=== PATIENT | male | born 1955 | race Asian ===

== ENCOUNTER 2024-03-05 08:22 | Inpatient (IN) | payer OTHER ==
[2024-03-05 08:43] LABS: #Basophils 0.06 10x3/uL (0.0-0.2); %Basophils 0.7 % (0.0-1.0); %Lymphocytes 24.4 % (21.0-51.0); %Monocytes 6.8 % (0.0-10.0); %Neutrophils 59.9 % (42.0-75.0); Hematocrit 44.2 % (42.0-52.0); Hemoglobin 14.5 g/dL (14.0-18.0); Mean Corpuscular HGB CONC 32.8 g/dL (32.0-36.0); Mean Corpuscular Hemoglobin 28.2 pg (27.0-31.0); Mean Platelet Volume 9.8 fL (7.4-10.4); Platelet Count 281 10x3/uL (130-400); RBC Distribution Width 12.7 % (11.5-14.5); Red Blood Cell (RBC) Count 5.14 mill/uL (4.70-6.10)
[2024-03-05 08:57] LABS: Prothrombin Time 13.1 sec (12.0-14.7)
[2024-03-05 08:58] LABS: PTT 28.7 sec (22.9-36.1)
[2024-03-05 09:02] LABS: ALT (SGPT) 18 U/L (8-55); AST (SGOT) 20 U/L (5-34); Alkaline Phosphatase 69 U/L (40-110); Anion Gap 12 mmol/L (10-20); BUN (Urea Nitrogen) 14 mg/dL (8.4-25.7); Calc. Creatinine Clearance 0 mL/min (70-130); Calcium 9.5 mg/dL (7.8-10.44); Carbon Dioxide 25 mmol/L (23-31); Chloride 104 mmol/L (98-107); Estimated GFR 76; Globulin 3.4 g/dL (2.4-3.5); Glucose 178 mg/dL (80-115); Potassium 4.2 mmol/L (3.5-5.1); Protein, Total 7.4 g/dL (5.8-8.1); Sodium 137 mmol/L (136-145)
[2024-03-05 09:04] LABS: Troponin I Less than 0.010 ng/mL (< 0.028)
[2024-03-05] MEDS ORDERED: Aspirin Chewable 81 MG TAB ONE (09:17)
[2024-03-05] MEDS ORDERED: Acetaminophen 325 MG TAB PO PRN (10:02)
[2024-03-05] MEDS ORDERED: Ondansetron PF 4 MG/2 ML Vial IVP PRN (10:37)
[2024-03-05] MEDS ORDERED: Ondansetron ODT 4 MG TAB PO PRN (10:37)
[2024-03-05 11:14] VITALS: BMI 25.5
[2024-03-05 11:32] LABS: Troponin I 0.019 ng/mL (< 0.028)
[2024-03-05] MEDS ORDERED: Dextrose 50% Abboject 50 ML SYRINGE SLOW IVP PRN (14:09)
[2024-03-05] MEDS ORDERED: HumaLOG 300 UNITS/3 ML VIAL SC PRN ×2 (14:09)
[2024-03-05] MEDS ORDERED: Glucagon 1 MG/ML KIT IM PRN (14:09)
[2024-03-05] MEDS ORDERED: Dextrose 5% in Water 1,000 ML IV PRN (14:09)
[2024-03-05 17:07] LABS: Troponin I 0.021 ng/mL (< 0.028)
[2024-03-05] MEDS: Atorvastatin Calcium 40 MG TAB PO SCH (20:04)
[2024-03-06 04:30] LABS: #Basophils 0.05 10x3/uL (0.0-0.2); %Basophils 0.6 % (0.0-1.0); %Eosinophils 8.1 % (0.0-10.0); %Lymphocytes 13.8 % (21.0-51.0); %Monocytes 8.2 % (0.0-10.0); %Neutrophils 69.2 % (42.0-75.0); Hematocrit 41.3 % (42.0-52.0); Hemoglobin 13.6 g/dL (14.0-18.0); Mean Corpuscular HGB CONC 32.9 g/dL (32.0-36.0); Mean Corpuscular Hemoglobin 27.3 pg (27.0-31.0); Mean Corpuscular Volume 82.8 fL (78.0-98.0); Mean Platelet Volume 9.7 fL (7.4-10.4); Platelet Count 259 10x3/uL (130-400); RBC Distribution Width 12.5 % (11.5-14.5); Red Blood Cell (RBC) Count 4.99 mill/uL (4.70-6.10)
[2024-03-06 05:01] LABS: Anion Gap 14 mmol/L (10-20); BUN (Urea Nitrogen) 13 mg/dL (8.4-25.7); Calc. Creatinine Clearance 78 mL/min (70-130); Calcium 9.1 mg/dL (7.8-10.44); Carbon Dioxide 24 mmol/L (23-31); Cardiac Risk 4.8 (Less than 4.5); Chloride 103 mmol/L (98-107); Cholesterol 174 mg/dl (< 200 Desired); Estimated GFR 83; Glucose 147 mg/dL (80-115); HDL Cholesterol 36 mg/dL (>60 Neg Risk); LDL Cholesterol, Calculated 122 mg/dL; Magnesium 2.1 mg/dL (1.6-2.6); Potassium 4.6 mmol/L (3.5-5.1); Sodium 136 mmol/L (136-145); Triglycerides 81 mg/dL (Less than 150)
[2024-03-06 09:04] LABS: Hemoglobin A1c 6.5 % (4.0-6.0)
[2024-03-06] MEDS: Enoxaparin 40 MG (0.4 mL) SYRINGE SC SCH (09:11)
[2024-03-06] MEDS: Aspirin 325 mg Enteric Coated Tablet PO SCH (09:12)
[2024-03-06] MEDS: Lisinopril 5 MG TAB PO SCH (09:12)
[2024-03-07] MEDS: OXYMETAZOLINE HCL EA NARE PRN (04:25)
[2024-03-07 04:35] LABS: #Basophils 0.03 10x3/uL (0.0-0.2); %Basophils 0.4 % (0.0-1.0); %Eosinophils 6.9 % (0.0-10.0); %Lymphocytes 21.9 % (21.0-51.0); %Neutrophils 61.5 % (42.0-75.0); Hemoglobin 13.6 g/dL (14.0-18.0); Mean Corpuscular HGB CONC 33.2 g/dL (32.0-36.0); Mean Corpuscular Volume 84.4 fL (78.0-98.0); Mean Platelet Volume 10.1 fL (7.4-10.4); Platelet Count 278 10x3/uL (130-400); RBC Distribution Width 12.5 % (11.5-14.5); Red Blood Cell (RBC) Count 4.86 mill/uL (4.70-6.10)
[2024-03-07 04:48] LABS: Anion Gap 12 mmol/L (10-20); BUN (Urea Nitrogen) 13 mg/dL (8.4-25.7); Calc. Creatinine Clearance 78 mL/min (70-130); Calcium 8.9 mg/dL (7.8-10.44); Carbon Dioxide 26 mmol/L (23-31); Chloride 105 mmol/L (98-107); Estimated GFR 83; Glucose 127 mg/dL (80-115); Potassium 4.3 mmol/L (3.5-5.1); Sodium 139 mmol/L (136-145)
[2024-03-07] MEDS ORDERED: PROPOFOL 20 ML ONE (10:45)
[2024-03-07 13:31] VITALS: BP 131/70; TEMP 97.9
== END 2024-03-07 14:32 | disposition home or self-care (01) | DRG 65 ==
LOC: ERS 08:22 → 2SE 09:29 → OBSVTOIN 15:18
PROVIDERS: ADMIT Internal Medicine; ATTEND Internal Medicine
PROC: B245ZZ4 Ultrasonography of Left Heart, Transesophageal (ICD-10-PCS; principal; 2024-03-07)
DX: I63.9 Cerebral infarction, unspecified (principal); G45.9 Transient cerebral ischemic attack, unspecified; G81.93 Hemiplegia, unspecified affecting right nondominant side; I10 Essential (primary) hypertension; E11.9 Type 2 diabetes mellitus without complications; I25.10 Atherosclerotic heart disease of native coronary artery without angina pectoris; I48.91 Unspecified atrial fibrillation
CPT/HCPCS: 36415; 36416; 70450; 70496; 70498; 70551; 80048; 80053; 80061; 83036; 83735; 84484; 85025; 85610; 85730; 93005; 93312; G0378; J1650; J2704